=== PATIENT | female | born 1955 | race Caucasian/White ===

== ENCOUNTER → 2017-08-24 | Outpatient (CLI) | payer OTHER ==
--- NOTE | 2017-08-24 09:56 | RADRPT ---
EXAM DATE/TIME: 08/24/2017 09:26 [place] COMPARISON: No previous studies available for comparison. INDICATIONS : Short of breath with exertion. MEDICAL HISTORY : Hypertension. SURGICAL HISTORY : None. ENCOUNTER: Initial ACUITY: >1 year PAIN SCORE: 0/10 LOCATION: Bilateral chest FINDINGS: PA and lateral views of the chest demonstrate the lungs to be symmetrically aerated without evidence of mass, infiltrate or effusion. The cardiomediastinal contours are unremarkable. Osseous structure s are intact. CONCLUSION: 1. No acute cardiopulmonary disease. Max Demarco MD on August 24, 2017 at 9:53 Board Certified Radiologist. This report was verified electronically.
--- NOTE | 2017-08-24 13:43 | EKG ---
Date Performed: 08/24/2017 Time Performed: 09:05:40 PTAGE: 61 years EKG: SINUS BRADYCARDIA POSSIBLE LEFT ATRIAL ENLARGEMENT INCOMPLETE RIGHT BUNDLE BRANCH BLOCK MOD ERATE T-WAVE ABNORMALITY, CONSIDER ANTERIOR ISCHEMIA Probable LVH Clinical correlation will be import ant ABNORMAL ECG NO PREVIOUS TRACING FOR COMPARISON DOCTOR: Nedra Naranjo Interpretating Date/Time 08/24/2017 13:42:38
== END ==
LOC: HCAV 08:44
PROVIDERS: ATTEND Family Medicine
DX: R06.09 Other forms of dyspnea (principal); R94.31 Abnormal electrocardiogram [ECG] [EKG]
CPT/HCPCS: 71046; 93005